=== PATIENT | male | born 1995 | race Caucasian/White ===

== ENCOUNTER → 2020-12-03 13:39 | Outpatient (CLI) | payer BC, SELFPAY ==
--- NOTE | ~2020-12-03 | XR_ITS ---
XR finger 1st RT min 2V DATE: 12/03/2020 13:56 INDICATION: Injury of thumb TECHNIQUE: 3 views COMPARISON: None FINDINGS: No fracture or dislocation, periosteal reaction or bone destruction. No radiopaque soft tis della foreign body or subcutaneous emphysema. IMPRESSION: No fracture or dislocation Reviewed, dictated and finalized at location A. IMPRESSION: No fracture or dislocation
== END ==
DX: S66.801A Unspecified injury of other specified muscles, fascia and tendons at wrist and hand level, right hand, initial encounter (principal)
CPT/HCPCS: 73140